=== PATIENT | female | born 1935 | race Caucasian/White ===

== ENCOUNTER 2017-02-06 18:34 | Emergency (ER) | payer OTHER ==
[~2017-02-06] VITALS: Ht 160 cm; Wt 68.0 kg
[~2017-02-06 18:34] MED LIST: METO50CR PO; NORV2.5T11 PO; SIMV40 PO; TEMA15CA PO
[2017-02-06 18:40] VITALS: BP 135/69; PULSE 69; RESP 16; TEMP 97.8; O2SAT 94
[2017-02-06] MEDS ORDERED: AMLO10 PO (18:49)
[2017-02-06] MEDS ORDERED: TEMA15CA PO (18:49)
[2017-02-06] MEDS ORDERED: SIMV40TA PO (18:49)
[2017-02-06] MEDS ORDERED: METO1TAB9 PO (18:49)
--- NOTE | 2017-02-06 19:10 | PD ---
HPI Chief Complaint: Fall Time Seen by Provider: 19:07 Travel History International Travel<30 days: No Contact w/Intl Traveler<30days: No Traveled to known affect area: No History of Present Illness HPI 81-year-old female patient presents to the ER today, states that she had tripped and fell onto her right face area, did not have a chance to catch herself. She denies any loss of consciousness, or other injuries. She does have some abrasions to her right knee. She states that she was able to get up and walk. She denies any vomiting, abdominal pains, chest pains, or other symptoms. Modifying Factors: None Associated Signs & Symptoms: Trip and fall, facial trauma Risk Factors: Elderly PFSH Past Medical History Hx Anticoagulant Therapy: No Anxiety: Yes Cancer: Yes (COLON) High Cholesterol: Yes Diminished Hearing: No Hypertension: Yes Influenza Vaccination: No Menopausal: Yes Past Surgical History Abdominal Surgery: Yes (COLON RESECTION R/T [place]) Tonsillectomy: Yes Social History Alcohol Use: Yes (occas) Tobacco Use: No Substance Use: No Allergies-Medications (Allergen,Severity, Reaction): Coded Allergies: No Known Allergies (Verified Adverse Reaction, Unknown, 02/06/17) Reported Meds & Prescriptions Reported Meds & Active Scripts Active Reported Temazepam 15 Mg Cap 15 Mg PO HS PRN Simvastatin 40 Mg Tab 40 Mg PO HS Norvasc (Amlodipine Besylate) 10 Mg Tab 10 Mg PO DAILY Metoprolol Succinate ER 24 HR (Metoprolol Succinate) 50 Mg Tab 50 Mg PO DAILY Simvastatin 40 mg (Simvastatin) 40 Mg Tab 1 Tab PO HS Temazepam 15 Mg Cap 15 Mg PO HS Metoprolol Succinate ER 50 mg (Metoprolol Succinate) 50 Mg Tab 50 Mg PO DAILY Norvasc (Amlodipine Besylate) 2.5 Mg Tab 10 Mg PO DAILY Review of Systems Except as stated in HPI: all other systems reviewed are Neg Physical Exam Narrative GENERAL: Well-developed pleasant elderly white female patient currently in no acute distress. Awake and oriented 3. SKIN: Focused skin assessment warm/dry. HEAD: Notable for ecchymosis or abrasions over the right eyebrow and around the right cheekbone without deformities. Normocephalic. No nasal area tenderness. EYES: Pupils equal and round. No scleral icterus. No injection or drainage. Extraocular movements are intact. ENT: No nasal bleeding or discharge. Mucous membranes pink and moist. NECK: Trachea midline. No JVD. Supple. No midline C-spine tenderness. CARDIOVASCULAR: Regular rate and rhythm. No murmur appreciated. RESPIRATORY: No accessory muscle use. Clear to auscultation. Breath sounds equal bilaterally. GASTROINTESTINAL: Abdomen soft, non-tender, nondistended. Hepatic and splenic margins not palpable. Pelvis: Stable and nontender to palpation. Nontender range of motion of both hips. EXTREMITIES: No clubbing, cyanosis, or edema. No joint tenderness, effusion, or edema noted. Nontender range of motion of both knees with no significant deformities. Abrasions over the right knee. MUSCULOSKELETAL: No obvious deformities. No clubbing. No cyanosis. No edema. NEUROLOGICAL: Awake and alert. No obvious cranial nerve deficits. Motor grossly within normal limits. Normal speech. PSYCHIATRIC: Appropriate mood and affect; insight and judgment normal. Data Data Last Documented VS Vital Signs Date Time Temp Pulse Resp B/P (MAP) Pulse Ox O2 Delivery O2 Flow Rate FiO2 02/06/17 18:40 97.8 69 16 135/69 (91) [address] Brain W/O Iv Contrast(Rout) (02/06/17 19:07) Ct Facial Bones W/O Iv Cont (02/06/17 19:07) Tetanus/Diphtheria Tox Adult (Tetanus/Di (02/06/17 19:15) MDM Medical Decision Making Medical Screen Exam Complete: Yes Emergency Medical Condition: Yes Medical Record Reviewed: Yes Interpretation(s) Last [address] 02/06/171906 Signed Impressions: Service Date/Time: Monday, February 06, 2017 19:32 - CONCLUSION: 1. Possible small age indeterminate right medial orbital wall fracture. 2. preorbital soft tissue edema on the right. 3. Frontal, ethmoid, maxillary, and sphenoid sinusitis. Ambrosio Aguilar MD Head CT 02/06/171906 Signed Impressions: Service Date/Time: Monday, February 06, 2017 19:32 - CONCLUSION: 1. No acute intracranial findings. 2. Right frontal scalp contusion. 3. Diffuse mucosal thickening of the frontal, sphenoid, maxillary, and ethmoid sinuses. Ambrosio Aguilar MD Differential Diagnosis Trip and fall, facial trauma: Facial fractures versus intracranial injuries versus abrasions and contusions Narrative Course There is signs of sinusitis and edema over the right face on CAT scan. There is a possible right orbital wall fracture. No acute intracranial injuries. At this point, my plan would be to put her on antibiotics for sinusitis and have her follow-up with [facility]. Return for any worsening in pain, fevers, or new symptoms as needed. The plan has been discussed with her and she states understanding. Diagnosis Primary Impression: Facial contusion Additional Impressions: Orbital wall fracture Sinusitis Referrals: Gonzalo Pack DDS Med/Other Pt SpecificInfo: Prescription(s) given Scripts Amoxicillin-Clavulanate (Augmentin) 500-125 mg Tab 500 MG PO Q8H for Infection for 7 Days, TAB 0 Refills Prov: Hannah Rapp MD 02/06/17 Tramadol (Tramadol) 50 Mg Tab 50 MG PO Q8H Y for PAIN, #12 TAB 0 Refills Prov: Hannah Rapp MD 02/06/17 Disposition: 01 DISCHARGE HOME Condition: Stable Hannah Rapp MD Feb 06, 2017 19:10
[2017-02-06] MEDS ORDERED: TETANUS/DIPHTHERIA TOXOID ADULT 0.5 ML VIAL IM ONE (19:15)
--- NOTE | 2017-02-06 20:05 | RADRPT ---
EXAM DATE/TIME: 02/06/2017 19:32 [facility] COMPARISON: CT FACIAL BONES W/O CONTRAST, February 21, 2013, 13:15. INDICATIONS : Trauma. Fall. RADIATION DOSE: 34.85 CTDIvol (mGy) MEDICAL HISTORY : Hypertension. Carcinoma, colon. SURGICAL HISTORY : None. ENCOUNTER: Initial ACUITY: 1 day PAIN SCORE: 0/10 LOCATION: Right facial TECHNIQUE: Volumetric scanning of the facial bones was performed. Using automated exposure control and adjustme nt of the mA and/or kV according to patient size, radiation dose was kept as low as reasonably achiev able to obtain optimal diagnostic quality images. DICOM format image data is available electronicall y for review and comparison. FINDINGS: Right-sided preorbital soft tissue edema. The globes are symmetric and round. There is minimal focal concavity measuring 5 mm in the medial wall of the right orbit indicating poss ible small age indeterminate fracture. No other fractures identified. Mild mucosal thickening of the maxillary sinuses and moderate severity diffuse partial opacification of the ethmoid sinuses. Mild mucosal thickening of the frontal sinuses and sphenoid sinuses. CONCLUSION: 1. Possible small age indeterminate right medial orbital wall fracture. 2. preorbital soft tissue edema on the right. 3. Frontal, ethmoid, maxillary, and sphenoid sinusitis. Ambrosio Aguilar MD on February 06, 2017 at 19:59 Board Certified Radiologist. This report was verified electronically.
--- NOTE | 2017-02-06 20:06 | RADRPT ---
EXAM DATE/TIME: 02/06/2017 19:32 [facility] COMPARISON: CT BRAIN W/O CONTRAST, February 21, 2013, 13:15. INDICATIONS : Trauma. Fall. RADIATION DOSE: 57.19 CTDIvol (mGy) MEDICAL HISTORY : Hypertension. Carcinoma, colon. SURGICAL HISTORY : None. ENCOUNTER: Initial ACUITY: 1 day PAIN SCALE: 0/10 LOCATION: Right frontal TECHNIQUE: Multiple contiguous axial images were obtained of the head. Using automated exposure control and adj ustment of the mA and/or kV according to patient size, radiation dose was kept as low as reasonably a chievable to obtain optimal diagnostic quality images. DICOM format image data is available electro nically for review and comparison. FINDINGS: CEREBRUM: Diffuse atrophy.. No evidence of midline shift, mass lesion, hemorrhage or acute infarction. No ext ra-axial fluid collections are seen. POSTERIOR FOSSA: The cerebellum and brainstem are intact. The 4th ventricle is midline. The cerebellopontine angle i s unremarkable. EXTRACRANIAL: Mucosal thickening of the frontal, sphenoid, maxillary, and ethmoid sinuses. SKULL: Right frontal scalp contusion. The calvaria is intact. No evidence of skull fracture. CONCLUSION: 1. No acute intracranial findings. 2. Right frontal scalp contusion. 3. Diffuse mucosal thickening of the frontal, sphenoid, maxillary, and ethmoid sinuses. Ambrosio Aguilar MD on February 06, 2017 at 20:03 Board Certified Radiologist. This report was verified electronically.
[2017-02-06] MEDS ORDERED: TRAM50TA PO (20:17)
[2017-02-06] MEDS ORDERED: AUGM500T7 PO (20:17)
[2017-02-06 20:34] VITALS: BP 130/68
== END 2017-02-06 20:36 | disposition home or self-care (01) ==
LOC: PHED 18:34
DX: S00.03XA Contusion of scalp, initial encounter (principal); S02.81XA Fracture of other specified skull and facial bones, right side, initial encounter for closed fracture; S80.211A Abrasion, right knee, initial encounter; J32.8 Other chronic sinusitis; E78.00 Pure hypercholesterolemia, unspecified; I10 Essential (primary) hypertension; W01.0XXA Fall on same level from slipping, tripping and stumbling without subsequent striking against object, initial encounter; Z23 Encounter for immunization
CPT/HCPCS: 70450; 70486; 90471; 90714